=== PATIENT | female | born 1950 | race Caucasian/White ===

== ENCOUNTER 2020-03-09 22:55 | Emergency (ER) | payer OTHER ==
[~2020-03-09] VITALS: Ht 160 cm; Wt 45.4 kg
[~2020-03-09 22:55] MED LIST: ANTIVERT25 MG PO; FLONASE 0.05% 121 EA NAS; LEVOFLOXACIN500 MG PO; LOMOTIL 0.025 M1 TA1 PO; PREDNICOT10 MG PO; PREDNISONE20 MG PO; PROAIR HFA0.09 MG/AC INH; VIBRAMYCIN100 MG PO; ZOFRAN ODT4 MG SL; [UNRECOGNIZED DRUG - REMARK] PO; [UNRECOGNIZED DRUG - REMARK] PO
[2020-03-10] MEDS ORDERED: AMOXICILLIN500 M2 PO (00:45)
== END 2020-03-10 01:30 | disposition home or self-care (01) ==
LOC: ED 22:55
DX: S20.219A Contusion of unspecified front wall of thorax, initial encounter (principal); Z79.899 Other long term (current) drug therapy; J32.9 Chronic sinusitis, unspecified; W19.XXXA Unspecified fall, initial encounter; Y93.89 Activity, other specified; Y92.89 Other specified places as the place of occurrence of the external cause; Y99.8 Other external cause status

== ENCOUNTER 2022-04-24 10:47 | Emergency (ER) | payer OTHER ==
[~2022-04-24] VITALS: Wt 44.5 kg
[~2022-04-24 10:47] MED LIST changes: +AMOXICILLIN500 M2 PO
[2022-04-24] MEDS ORDERED: ALENDRONATE SOD70 M1 PO (11:16)
[2022-04-24] MEDS ORDERED: PRAVASTATIN SOD40 MG PO (11:17)
[2022-04-24] MEDS ORDERED: AMLODIPINE BESYL5 MG PO (11:17)
[2022-04-24] MEDS ORDERED: ATENOLOL-CHLOR1 EACH PO (11:17)
[2022-04-24 12:04] LABS: BASO % 0.4 % (0.0-1.0); EOS % 0.4 % (1.0-4.0); HEMATOCRIT 40.1 % (37.0-47.0); LYMPH # 1.4 10*3/uL (1.3-4.4); LYMPH % 24.6 % (27.0-41.0); MEAN CELL VOLUME 89.5 fl (81.0-99.0); MEAN CORPUSCULAR HGB 30.8 pg (27.0-31.0); MEAN CORPUSCULAR HGB CONC 34.4 g/dl (33.0-37.0); MEAN PLATELET VOLUME 13.6 fl (9.6-12.3); MONO # 0.6 10*3/uL (0.1-1.0); MONO % 10.1 % (3.0-9.0); NEUT # 3.6 10*3/uL (2.3-7.9); NEUT % 64.3 % (47.0-73.0); PLATELET COUNT AUTOMATED 154 10*3/uL (130-400); RED BLOOD COUNT 4.48 10*6/uL (4.10-5.10); RED CELL DISTRI WIDTH 13.1 % (0-14.5); WHITE BLOOD COUNT 5.7 10*3/uL (4.8-10.8)
[2022-04-24 12:14] LABS: ACT PARTIAL THROMBO TIME 31.8 SECONDS (20.0-32.1)
[2022-04-24 12:18] LABS: CREATININE 3.91 mg/dL (0.55-1.02); POTASSIUM 2.7 mmol/L (3.4-5.1)
[2022-04-24 12:19] LABS: TOTAL PROTEIN 7.3 gm/dL (6.0-8.0)
[2022-04-26] MEDS ORDERED: LISINOPRIL10 M1 PO (08:36)
[2022-04-29] MEDS ORDERED: VITAMIN D350 MC2 PO (12:14)
[2022-04-29] MEDS ORDERED: PANTOPRAZOLE SO40 MG PO (12:14)
== END 2022-04-24 15:27 | disposition left against medical advice (07) ==
LOC: ED 10:47
PROVIDERS: Family Medicine
DX: N17.9 Acute kidney failure, unspecified (principal); E87.6 Hypokalemia; Z79.899 Other long term (current) drug therapy